=== PATIENT | female | born 1990 | race Caucasian/White ===

== ENCOUNTER → 2020-11-29 18:58 | Outpatient (CLI) | payer OTHER, SELFPAY ==
[2020-11-29 20:08] LABS: COVID19 -Nasal RAPID Negative (Negative)
== END ==
PROVIDERS: Family Provider Nurse Practitioner Family; PCP Nurse Practitioner Family; Visit Provider Nurse Practitioner
DX: Z20.822 Contact with and (suspected) exposure to COVID-19 (principal); J31.2 Chronic pharyngitis
CPT/HCPCS: 87070; 87635